=== PATIENT | female | born 1990 | race Caucasian/White ===

== ENCOUNTER 2018-01-07 11:22 | Emergency (ER) | payer MEDICAID, OTHER ==
[2018-01-07] MEDS ORDERED: IBUPROFEN 600 MG TABLET PO ONE (11:57)
--- NOTE | 2018-01-07 12:03 | ER Document Report ---
ED Medical Screen (RME) - General Chief Complaint: Toe Injury Stated Complaint: TOE INJURY Time Seen by Provider: 01/07/18 11:55 Notes: RAPID MEDICAL EVALUATION DISCLOSURE I have seen this patient as part of a Rapid Medical Evaluation and, if applicable, placed any initially appropriate orders. The patient will be seen and fully evaluated, including a full history and physical exam, by a provider ( in Main ED or Fast Track) when a room becomes available. 27-year-old male here with complaints of right third toe pain that started just prior to arrival when she slipped on a wet floor and bend her toe into an awkward position. She has not taken anything for the pain. Pain is worse with movement. Pain is improved with minimizing movement. She denies any numbness tingling weakness. EXAM Right third toe with deformity, medial deviation TRAVEL OUTSIDE OF THE [place] IN LAST 30 DAYS: No - Related Data Allergies/Adverse Reactions: No Known Allergies Allergy (Verified 01/07/18 11:23) Past Medical History - Social History Chew tobacco use (# tins/day): No Frequency of alcohol use: None Drug Abuse: None Renal/ Medical History: Denies: Hx Peritoneal Dialysis Past Surgical History: Reports: Hx Section - Immunizations Hx Diphtheria, Pertussis, Tetanus Vaccination: Yes Physical Exam - Vital signs Vitals: Temp Pulse Resp BP Pulse Ox 97.7 F 78 18 127/71 H 99 01/07/18 11:01/07/18 11:01/07/18 11:01/07/18 11:01/07/18 11:26 Course - Vital Signs Vital signs: Temp Pulse Resp BP Pulse Ox 97.7 F 78 18 127/71 H 99 01/07/18 11:26 01/07/18 11:01/07/18 11:01/07/18 11:01/07/18 11:26 Doctor's Discharge - Discharge Referrals: FIDEL CAMERON DO [Primary Care Provider] - Follow up as needed
--- NOTE | 2018-01-07 12:49 | RADIOLOGY REPORT (SQ) ---
EXAM DESCRIPTION: TOE RIGHT COMPLETED DATE/TIME: 01/07/2018 12:27 pm REASON FOR STUDY: R 3rd toe deformity COMPARISON: None. NUMBER OF VIEWS: Three views. TECHNIQUE: AP, lateral, and oblique images acquired of the right third toe. LIMITATIONS: None. FINDINGS: MINERALIZATION: Normal. BONES: There is an oblique fracture involving the proximal end of the middle phalanx of the 3rd digit which extends to the articular surface. No other evidence for fracture is seen JOINTS: There is subluxation of the middle phalanx of the 3rd digit in relation to the proximal phala nx. SOFT TISSUES: No soft tissue swelling. No foreign body. OTHER: No other significant finding. IMPRESSION: Fracture involving the proximal end of the middle phalanx of the 3rd digit. There is piña bluxation of the middle phalanx of the 3rd digit in relation to the proximal phalanx. Other findings as noted above. COMMENT: SITE OF TRAUMA/COMPLAINT MARKED/STAMP COMPLETED: No TECHNICAL DOCUMENTATION: JOB ID: [id number] [employer]- All Rights Reserved Reading location - IP/workstation name: [email or web address]
[2018-01-07] MEDS ORDERED: LIDOCAINE 2% INJ (20 MG/ML) 20 ML MDV INJ ONE (13:46)
--- NOTE | 2018-01-07 14:03 | ER Document Report ---
ED Extremity Problem, Lower - General Chief Complaint: Toe Injury Stated Complaint: TOE INJURY Time Seen by Provider: 01/07/18 11:55 Mode of Arrival: Ambulatory Information source: Patient Notes: Chief complaint: Right third toe injury History of complain:( obtained from----patient) 27 years old female accidentally hit the cupboard on his right third toe and injured it, noted bluish discoloration and pain and deformity therefore presented to the ED. Onset: Just prior to arrival sudden onset Duration: Just prior to arrival Severity: Moderate Quality: Sharp Context: As above Exacerbating factor and relieving factors: Walking increases the pain REVIEW OF SYSTEMS: CONSTITUTIONAL : Denies fever, chills, or sweats. Denies recent illness. EENT: Denies eye, ear, throat, or mouth pain or symptoms. Denies nasal or sinus congestion or discharge. Denies throat, tongue, or mouth swelling or difficulty swallowing. CARDIOVASCULAR: Denies chest pain. Denies palpitations or racing or irregular heart beat. Denies ankle edema. RESPIRATORY: Denies cough, cold, or chest congestion. Denies shortness of breath, difficulty breathing, or wheezing. GASTROINTESTINAL: Denies distention. Denies nausea, vomiting, or diarrhea. Denies blood in vomitus, stools, or per rectum. Denies black, tarry stools. Denies constipation. GENITOURINARY: Denies difficulty urinating, painful urination, burning, frequency, blood in urine, or discharge. FEMALE GENITOURINARY: Denies vaginal bleeding, heavy or abnormal periods, irregular periods. Denies vaginal discharge or odor. MUSCULOSKELETAL: Denies back or neck pain or stiffness. Denies joint pain or swelling. SKIN: Denies rash, lesions or sores. HEMATOLOGIC : Denies easy bruising or bleeding. LYMPHATIC: Denies swollen, enlarged glands. NEUROLOGICAL: Denies confusion or altered mental status. Denies passing out or loss of consciousness. Denies dizziness or lightheadedness. Denies headache. Denies weakness or paralysis or loss of use of either side. Denies problems with gait or speech. Denies sensory loss, numbness, or tingling. Denies seizures. PSYCHIATRIC: Denies anxiety or stress. Denies depression, suicidal ideation, or homicidal ideation. ALL OTHER SYSTEMS REVIEWED AND NEGATIVE. PHYSICAL EXAMINATION: GENERAL: Well-appearing, well-nourished and in no acute distress. HEAD: Atraumatic, normocephalic. EYES: Pupils equal round and reactive to light, extraocular movements intact, conjunctiva are normal. ENT: Nares patent, oropharynx clear without exudates. Moist mucous membranes. NECK: Normal range of motion, supple without lymphadenopathy LUNGS: Breath sounds clear to auscultation bilaterally and equal. No wheezes rales or rhonchi. HEART: Regular rate and rhythm without murmurs ABDOMEN: Soft, nontender, nondistended abdomen. No guarding, no rebound. No masses appreciated. Examination of genitals-deferred Musculoskeletal: Normal range of motion, no pitting or edema. No cyanosis. Except right third toe middle phalanx deformity bluish discoloration and tenderness were noted. NEUROLOGICAL: Cranial nerves grossly intact. Normal speech, normal gait. Normal sensory, motor exams PSYCH: Normal mood, normal affect. SKIN: Warm, Dry, normal turgor, no rashes or lesions noted. Dictation was performed using [employer] voice recognition software TRAVEL OUTSIDE OF THE [place] IN LAST 30 DAYS: No - Related Data Allergies/Adverse Reactions: No Known Allergies Allergy (Verified 01/07/18 11:23) Past Medical History - Social History Smoking Status: Never Smoker Chew tobacco use (# tins/day): No Frequency of alcohol use: None Drug Abuse: None Family History: Reviewed & Not Pertinent Patient has suicidal ideation: No Patient has homicidal ideation: No Renal/ Medical History: Denies: Hx Peritoneal Dialysis Past Surgical History: Reports: Hx Section - Immunizations Hx Diphtheria, Pertussis, Tetanus Vaccination: Yes Review of Systems - Review of Systems Notes: Dictated Physical Exam - Vital signs Vitals: Temp Pulse Resp BP Pulse Ox 97.7 F 78 18 127/71 H 99 01/07/18 11:01/07/18 11:01/07/18 11:01/07/18 11:01/07/18 11:26 - Notes Notes: Dictated Course - Re-evaluation Re-evalutation: 01/07/18 15:10 Postreduction x-ray shows good alignment - Vital Signs Vital signs: Temp Pulse Resp BP Pulse Ox 97.7 F 78 18 127/71 H 99 01/07/18 11:26 01/07/18 11:01/07/18 11:01/07/18 11:26 01/07/18 11:26 - Diagnostic Test Radiology reviewed: Reports reviewed - Reported by radiologist as right third toe middle phalanx fracture dislocation. Postreduction x-ray indicated by radiologist as normal alignment with small fracture Procedures - Joint Reduction/Fracture Care Right Toe Time completed: 14:30 Consent obtained: Yes Conscious sedation: No Pre-procedure NV exam: Yes Fracture: Closed, Other Manipulation comment: Reduction of dislocation Post-procedure NV exam: Yes - normal Post-reduction x-ray: Joint reduced Reduction attempts: 1 Complications: No Discharge - Discharge Clinical Impression: Fracture dislocation, Fracture dislocation of right third toe Condition: Fair Disposition: HOME, SELF-CARE Instructions: Fracture ([facility]) Prescriptions: Ibuprofen [Motrin 600 Mg Tablet] 600 mg PO TID #15 tablet Referrals: FIDEL CAMERON DO [NO LOCAL MD] - Follow up as needed
--- NOTE | 2018-01-07 15:03 | RADIOLOGY REPORT (SQ) ---
EXAM DESCRIPTION: TOE RIGHT COMPLETED DATE/TIME: 01/07/2018 2:52 pm REASON FOR STUDY: reduction of toe COMPARISON: None. NUMBER OF VIEWS: Two views. TECHNIQUE: AP and oblique images acquired of the right third toe. LIMITATIONS: None. FINDINGS: Post closed reduction of the 3rd toe PIP joint dorsal dislocation. There is normal alignment at the 3rd toe PIP joint. A small acute avulsion fragment is seen off the plantar base right 3rd toe middle phalanx, best shown on the oblique view. Mild 3rd toe soft tissue swelling. No radiopaque foreign body. Normal bone density. IMPRESSION: Post closed reduction of the 3rd toe PIP joint dorsal dislocation. Current normal align ment at the 3rd toe PIP joint. There is a small acute avulsion fragment off the plantar base middle phalanx at the PIP joint. COMMENT: SITE OF TRAUMA/COMPLAINT MARKED/STAMP COMPLETED: Yes TECHNICAL DOCUMENTATION: JOB ID: [id number] [employer]- All Rights Reserved Reading location - IP/workstation name: [email or web address]
[2018-01-07 16:50] VITALS: BP 127/86
== END 2018-01-07 16:49 | disposition home or self-care (01) ==
LOC: ER 11:22
PROC: 0QSQXZZ Reposition Right Toe Phalanx, External Approach (ICD-10-PCS; principal; 2018-01-07)
DX: S92.521A Displaced fracture of middle phalanx of right lesser toe(s), initial encounter for closed fracture (principal); W22.09XA Striking against other stationary object, initial encounter
CPT/HCPCS: 99283; 73660; 28515; J3490